=== PATIENT | male | born 1945 | race Caucasian/White ===

== ENCOUNTER 2023-08-14 05:12 | Emergency (ER) | payer MEDICARE, OTHER, SELFPAY ==
[2023-08-14 05:24] VITALS: BMI 34.9
[2023-08-14 05:29] VITALS: BP 167/100
[2023-08-14 05:38] VITALS: BP 160/93
[2023-08-14 05:55] LABS: % Basophils 0.9 % (0-2); % Eosinophils 0.9 % (0-6); % Immature Granulocytes 0.6 % (0-0.5); % Lymphocytes 3.5 % (20.5-51.1); % Monocytes 7.7 % (1.7-9.3); % Neutrophils 86.4 % (42.2-75.2); Absolute Basophils 0.1 10^3/uL (0-0.2); Absolute Eosinophils 0.1 10^3/uL (0-0.7); Absolute Immature Granulocytes 0.1 10^3/uL (0-0.05); Absolute Lymphocytes 0.3 10^3/uL (1.2-3.4); Absolute Monocytes 0.6 10^3/uL (0.1-0.6); Absolute Neutrophils 6.9 10^3/uL (1.4-6.5); Hematocrit 38.5 % (39.0-52.0); Hemoglobin 13.2 g/dL (13.0-18.0); Mean Corp Hgb Conc. 34.3 g/dL (33.0-37.0); Mean Corpuscular Hgb 30.5 pg (27.0-31.0); Mean Corpuscular Volume 88.9 fL (80.0-94.0); Mean Platelet Volume 9.5 fL (7.4-10.4); Nucleated Red Blood Cells % 0 % (-); Platelet Count 233 10^3/uL (130-400); Red Blood Cell Count 4.33 10^6/uL (4.70-6.10); Red Cell Dist. Width 12.9 % (11.5-14.5); White Blood Cell Count 7.9 10^3/uL (4.8-10.8)
[2023-08-14 06:00] VITALS: BP 133/98
--- NOTE | 2023-08-14 06:03 | ED.GENMED ---
History of Present Illness
General
Chief Complaint: Anxiety
Time Seen by Provider: 08/14/23 06:03
Travel History
Have you had any contact with someone who has COVID-19?: No
Do you have any symptoms of coronavirus? Fever > 100 degrees, chills, cough, shortness of breath, sore throat, loss of taste or smell, muscle aches, or headache?: No
History of Present Illness
History of Present Illness:
HPI: Came in by ambulance with multiple complaints. Overnight, the patient realized that he was having significant trouble sleeping. He only occasionally has insomnia. This morning, he felt dizziness, some nausea, some vague abdominal discomfort,
felt somewhat anxious but upon my initial evaluation overall feels improved spontaneously. He has no headache. All symptom spontaneously resolved.
EXAM:
GENERAL: Well appearing in no distress
HEENT: Moist oral mucosa
CARDIOVASCULAR: No murmurs, normal heart rate and rhythm, No chest wall tenderness
PULMONARY: No respiratory distress, breath sounds are clear and equal
ABDOMEN: Soft with no peritoneal signs, no tenderness, elevated
NEUROLOGIC: Excellent strength all extremities, no coordination deficits, normal finger-nose testing bilaterally
PSYCHIATRIC: Appropriate mental status, normal insight and judgement
EXTREMITIES: Nontender, no edema, moves all extremities equally
SKIN: No rash, no lesions
ED COURSE:
6:20 AM: I initially evaluated patient
NUMBER AND COMPLEXITY OF PROBLEMS ADDRESSED AT THE ENCOUNTER
� Chronic conditions affecting care: High blood pressure, iron deficiency anemia, anxiety
� Acute Exacerbation and/or Progression of Chronic Illness: This is an acute problem
� Differential Diagnosis includes: Central etiology of dizziness very unlikely based on physical examination, insomnia, lab abnormality, hypertensive urgency, anxiety
AMOUNT AND/OR COMPLEXITY OF DATA TO BE REVIEWED AND ANALYZED
� I performed an independent evaluation of and my interpretation is:
EKG:
CT:
X-rays:
Laboratory Studies: White count normal, hemoglobin 13.2, chemistries relatively unremarkable
Other:
� Review of other/old records: The patient had upper endoscopy in 2012 related to iron deficiency anemia which was unremarkable
� Clinical information was obtained by an independent historian: None needed, EMS notes reviewed
� Prescriptions/Medications Considered but not given: Offered and considered giving IV fluids however the patient declined and just states that 'I need to drink more'
� Further testing considered but not performed:
RISK OF COMPLICATIONS AND/OR MORBIDITY OR MORTALITY OF PATIENT MANAGEMENT
� Social determinants of health affecting care: Lives with son at home
� Discussion with other providers:
� Escalation of care including admission/observation vs risk of discharge considered: The patient is sinus on the monitor with rates in the 90s. He is well-appearing with no symptoms currently. He feels very comfortable with
going home currently. Will arrange for cab to take him home as his son does not drive
Phy Exam
Physical Exam
Physical Exam:
See HPI
Course
Orders/Labs/Results
Orders:
Orders
08/14/23 05:37
CMP [Comprehensive Metabolic Panel] Urgent
Complete Blood Count/With Diff Urgent
Abnormal Lab Results
08/14/23
05:37
RBC 4.33 L 10^6/uL
(4.70-6.10)
Hct 38.5 L %
(39.0-52.0)
Abs Immat Gran (auto) 0.1 H 10^3/uL
(0-0.05)
Absolute Neuts (auto) 6.9 H 10^3/uL
(1.4-6.5)
Absolute Lymphs (auto) 0.3 L 10^3/uL
(1.2-3.4)
Immature Gran % 0.6 H %
(0-0.5)
Neutrophils % 86.4 H %
(42.2-75.2)
Lymphocytes % 3.5 L %
(20.5-51.1)
Glucose 101 H mg/dl
(70-99)
Calcium 8.2 L mg/dl
(8.4-10.2)
Total Protein 5.9 L g/dl
(6.3-8.2)
Albumin 3.4 L g/dl
(3.5-5.0)
08/14/23 05:37
08/14/23 05:37
Vital Signs
Initial and Last Documented VS:
Initial Vital Signs
Pulse
103
08/14/23 05:19
Last Documented Vital Signs
Pulse BP Pulse Ox
94 133/98 90
08/14/23 06:00 08/14/23 06:00 08/14/23 06:00
*Critical Care Note
Total Time (30-74mins, 75-104mins- exclusive of procedures): Not Applicable
ED Attending Note
-
Portions of this chart may have been created with voice recognition software.� Occasional wrong word or��sound alike� substitutions may have occurred due to the inherent limitations of voice recognition software.
Discharge Plan
Departure
Patient Disposition: Home (Routine Discharge)
Date of Disposition: 08/14/23
Time of Disposition: 06:23
Patient with high blood pressure during this ER visit?: Yes
Discharge Problem:
Dizziness
Instructions: Insomnia (DC), Dizziness, Adult ED, BLOOD PRESSURE
Prescriptions:
No Action
lorazepam [Ativan] 1 mg Tablet
1 mg PO TID PRN (Reason: ANXIETY)
buprenorphine-naloxone [Suboxone] 8-2 mg Film
1 film BUCCAL DAILY
Viibryd
1 tab PO DAILY
Referrals:
UNKNOWN - PT DOES,NOT KNOW [Family Provider] -
Activity Restrictions/Additional Instructions:
Basic blood work is normal. Return here if worse.
Interventions
Interventions:
*Risk Screen - Suicide Last Done: 08/14/23 05:14
*General Assessment Last Done: 08/14/23 05:14
*Neglect/Abuse Screening Last Done: 08/14/23 05:14
ED- Fall Risk Assessment Last Done: 08/14/23 05:25
*ED COVID-19 Vaccine History Last Done: 08/14/23 05:25
ED-Psychological Assessment Last Done: 08/14/23 05:25
[2023-08-14 06:04] LABS: ALT (SGPT) 25 U/L (0-50); AST (SGOT) 28 U/L (17-59); Albumin 3.4 g/dl (3.5-5.0); Alkaline Phosphatase 73 U/L (38-126); Blood Urea Nitrogen 10 mg/dl (9-20); Calcium 8.2 mg/dl (8.4-10.2); Carbon Dioxide 26 mmol/L (22-30); Chloride 103 mmol/L (98-107); Estimated Creatinine Clearance 107 ml/min; Glucose 101 mg/dl (70-99); Potassium 3.5 mmol/L (3.5-5.1); Sodium 136 mmol/L (135-145); Total Bilirubin 0.6 mg/dl (0.2-1.3); Total Protein 5.9 g/dl (6.3-8.2); eGFR > 60.00
== END 2023-08-14 06:56 | disposition home or self-care (01) ==
LOC: EMR 05:12
PROVIDERS: Emergency Medicine; EMERGENCY PHYSICIAN Emergency Medicine
DX: R42 Dizziness and giddiness (principal); R11.0 Nausea; R10.9 Unspecified abdominal pain; G47.00 Insomnia, unspecified; R03.0 Elevated blood-pressure reading, without diagnosis of hypertension
CPT/HCPCS: 99283; 80053; 85025